=== PATIENT | male | born 1990 | race Caucasian/White ===

== ENCOUNTER 2020-12-25 18:45 | Emergency (ER) | payer OTHER, SELFPAY ==
[2020-12-25 19:00] VITALS: BP 127/66; PULSE 92; RESP 18; TEMP 37.4; O2SAT 98; BMI 25.0
[2020-12-25 19:32] VITALS: PULSE 78; O2SAT 97
[2020-12-25 19:38] LABS: COVID19 -Nasal RAPID Negative (Negative)
[2020-12-25 20:00] VITALS: BP 126/64; PULSE 88; O2SAT 97
--- NOTE | 2020-12-25 20:16 | ED_ITS ---
HPI - Fever General Chief Complaint: Fever Stated Complaint: fever, not feeling well Time Seen by Provider: 12/25/20 18:46 Source: patient Mode of arrival: Ambulatory Limitations: no limitations History of Present Illness HPI Narrative: 30-year-old male smoker with noncontributory medical history presents with his significant other and a chief complaint of a few days of fever, body aches, sore throat and difficulty swallowing. He had been seen earlier in the day and had a COVID swab at an outside facility which was negative. He denies any nasal congestion or runny nose, he denies any cough or chest pain. He has had no nausea, vomiting or diarrhea. His pain is worse on the left side of his throat than the right and certainly worsened with swallowing. He is able to keep liquids down. MD complaint: fever Onset (ago): day(s) Temperature Source: subjective Associated symptoms: chills, myalgias and sore throat Relieving factors: nothing Related Data Previous Rx's Medication Instructions Recorded amoxicillin-pot clavulanate 1 tab PO BID #20 tab 12/25/20 [Augmentin] Allergies Allergy/AdvReac Type Severity Reaction Status Date / Time No Known Drug Allergies Allergy Verified 12/25/20 19:00 Review of Systems Constitutional Constitutional: Reports body ache(s), Reports chills, Denies fatigue, Reports fever(s), Denies frequent falls, Denies lethargy and Denies weakness Eyes Eyes: Denies change in vision, Denies eye discharge, Denies irritation and Denies loss of vision ENT Ears, Nose, Mouth, and Throat: Denies change in voice, Denies dizziness, Denies neck pain, Reports sore throat and Denies throat swelling Cardiovascular Cardiovascular: Denies chest pain, Denies irregular heart rhythm, Denies lightheadedness, Denies palpitations, Denies dyspnea, Denies dyspnea on exertion and Denies orthopnea Respiratory Respiratory: Denies cough, Denies dyspnea, Denies dyspnea on exertion and Denies wheezing Gastrointestinal Gastrointestinal: Denies abdominal pain, Denies change in bowel habits, Denies diarrhea, Denies nausea and Denies vomiting Musculoskeletal Musculoskeletal: Denies neck pain and Denies numbness Integumentary/Breasts Skin/Breast: Denies pruritus, Denies erythema, Denies rash and Denies wounds Neurologic Neurologic: Denies behavioral changes, Denies confusion, Denies dizziness, Denies frequent falls, Denies loss of vision, Denies numbness and Denies weakness Psychiatric Psychiatric: Denies anxiety, Denies behavioral changes, Denies confusion, Denies depression, Denies homicidal ideation and Denies suicidal ideation Endocrine Endocrine: Denies fatigue, Denies flushing and Denies palpitations Hematologic/Lymphatic Hematologic/Lymphatic: Denies easy bruising Allergic/Immunologic Allergic/Immunologic: Denies urticaria, Denies throat swelling and Denies wheezing Patient History Social History Smoking Status: Current some day smoker Smoking Status: Current some day smoker tobacco type: vaping alcohol intake frequency: holidays/special occasions only Substance Use Type: does not use Exam Narrative Exam Narrative: GEN: AOx3 and in mild distress, obviously feeling unwell, not septic EYES: Pupils are equal, round, and reactive to light and accommodation. Extraoccular muscles are intact bilaterally. There is no subconjunctival hemorrhage or exudate. ENT: Notable pharyngeal erythema with some white exudate in the left posterior pharynx, no swelling or uvular pointing. Tender left anterior lymphadenopathy. Tympanic membranes clear bilaterally with normal cone of light CHEST: Lungs are clear to auscultation bilaterally and free of wheezes, rales, or rhonchi. Heart rate is regular rhythm, there are no murmurs, clicks, rubs, or gallops. There is no chest wall tenderness. ABD: Abdomen is soft and nontender. There is no guarding or rebound. Bowel sounds are normal in all 4 quadrants. There is no mass or organomegaly. EXT: Full painless ROM of all extremities with no loss of sensation or strength. SKIN: Warm, pink, and dry. No erythema or rash Initial Vital Signs Initial Vital Signs: Vital Signs Temperature 99.3 F 12/25/20 19:00 Pulse Rate 92 H 12/25/20 19:00 Respiratory Rate 18 12/25/20 19:00 Blood Pressure 127/66 12/25/20 19:00 Pulse Oximetry 98 12/25/20 19:00 Course Course Course Narrative: Though patient's rapid strep test is negative I am highly suspicious for a bacterial strain of pharyngitis, his exam and history are very convincing. Antibiotics written, culture obtained #66: Appropriate Testing for Patients with Pharyngitis [x] The patient has acute pharyngitis/tonsillitis. The patient was prescribed antibiotics today and a strep test or culture was performed. [SATISFIES [facility] [employer] [employer]] [] The patient has acute pharyngitis/tonsillitis and was prescribed antibiotics today. A strep test or culture was not performed because the patient meets one of the following: [M[employer] PERFORMAN[employer] EXCEPTION/EXCLUSION] [] Patient received a competing diagnosis. The patient?s competing diagnosis is [] (e.g. acute otitis media, chronic sinusitis, cellulitis, etc.) [] Patient is currently on antibiotics or has been in the last 30 days. [] Patient had a competing comorbid condition within the last 12 months. The patient?s comorbid condition is [] (e.g., tuberculosis, neutropenia, cystic fibrosis, chronic bronchitis, pulmonary edema, respiratory failure, rheumatoid lung disease) [] The patient has acute pharyngitis/tonsillitis. The patient was prescribed antibiotics today and a strep test or culture was not performed. [DOES NOT SATISFY MIPS PERFORMANCE] Orders Ordered: Discontinued Medications Amoxicillin/Clavulanate Potassium (Amoxicillin/Clav 875/125 Mg) 1 tab PO NOW ONE Stop: 12/25/20 21:36 Last Admin: 12/25/20 21:39 Dose: 1 tab Documented by: OMARI Vital Signs Vital signs: Vital Signs - 8 hr 12/25/20 19:00 Temperature 99.3 F Pulse Rate 92 H Respiratory Rate 18 Blood Pressure 127/66 Pulse Oximetry 98 MDM - Fever Lab Data Labs: Lab Results 12/25/20 Range/Units 19:21 SARS-CoV-2 (PCR) Negative (Negative) Point of Care Testing Rapid Strep A Negative Discharge Plan Departure Patient Disposition: Home Clinical Impression: Pharyngitis Qualifiers: Pharyngitis/tonsillitis etiology: unspecified etiology Qualified Code(s): J02.9 - Acute pharyngitis, unspecified Instructions: DI for Pharyngitis/Tonsillopharyngitis -- Adult Activity Restrictions/Additional Instructions: *You have been diagnosed with [acute pharyngitis. *What to do: *Please continue to take your regular medications as directed. [x] New medication prescriptions sent to your pharmacy: [ [facility]] [ ] New medication written as a paper prescription [ ] No new medications given *Please follow up with your primary care provider in 2-3 days, call for an appointment. Let them know you were seen in the Emergency Department and that we ask that you be seen in follow up. We will electronically transmit a record of today's note if your PCP is in our system *If you do not have a primary care provider please contact the [facility] Resource line at [phone]. They will ask some questions about your medical history and help get you set up with a doctor in the community. *Return to Emergency Department if you should have any new, worsening or concerning symptoms, such as [fever greater than 101 F, shaking chills, worsening pain, persistent vomiting or other bothersome symptoms] Prescriptions: New amoxicillin-pot clavulanate [Augmentin] 875-125 mg tablet 1 tab PO BID Qty: 20 RF: 0
[2020-12-25 20:30] VITALS: BP 116/75; PULSE 84; O2SAT 96
[2020-12-25 21:00] VITALS: BP 124/60; PULSE 75; O2SAT 96
[2020-12-25] MEDS: AMOXICILLIN/CLAV 875/125 MG 1 TAB PO (21:39)
[2020-12-25 21:56] VITALS: BP 133/69; PULSE 70; RESP 18; O2SAT 97
== END 2020-12-25 21:59 | disposition home or self-care (01) ==
PROVIDERS: Emergency Provider Emergency Medicine
DX: J02.9 Acute pharyngitis, unspecified (principal); Z20.822 Contact with and (suspected) exposure to COVID-19
CPT/HCPCS: 87070; 87077; 87147; 87635; 87880; 99283; C9803

== ENCOUNTER → 2021-01-28 13:32 | Outpatient (CLI) | payer OTHER, SELFPAY ==
[2021-01-28 15:56] LABS: Add Manual Diff / Slide Review NO; Basophils Absolute Auto 100 /uL (0-100); Basophils Percent Auto 0.6 % (0-2); Eosinophils Absolute Auto 0 /uL (0-450); Eosinophils Percent Auto 0.4 % (2-4); Hematocrit 46.1 % (41-53); Hemoglobin 15.8 g/dL (13.5-17.5); Lymphocytes Absolute Auto 1900 /uL (1100-4500); Mean Corpuscular HGB Conc 34.4 % (30-36); Mean Corpuscular Hemoglobin 29.6 PG (26-34); Mean Corpuscular Volume 86.2 fL (80-100); Monocytes Absolute Auto 700 /uL (0-900); Monocytes Percent Auto 8.1 % (3-14); Neutrophils Absolute Auto 6000 /uL (1500-7000); Neutrophils Percent Auto 68.9 % (50-75); Platelet Count 244 X10^3/uL (150-400); Red Blood Cell Count 5.35 X10^6/uL (4.5-5.9); Red Cell Distribution Width 13.8 % (11.6-14.8); White Blood Cell Count 8.7 X10^3/uL (4.5-11.0)
[2021-01-28 16:33] LABS: Alanine Aminotransferase 22 IU/L (<50); Albumin 4.5 g/dL (3.5-5.0); Albumin Globulin Ratio 1.6 (1.0-2.8); Alkaline Phosphatase 59 U/L (38-126); Aspartate Aminotransferase 19 IU/L (17-59); BUN Creatinine Ratio 24.7 (6-22); Bilirubin Total 0.5 mg/dL (0.2-1.3); Blood Urea Nitrogen 23 mg/dL (9-20); C-Reactive Protein Quant < 0.5 mg/dL (<1.0); Calcium 9.5 mg/dL (8.4-10.2); Carbon Dioxide 28 mmol/L (22-32); Chloride 101 mmol/L (98-107); Estimated Glomerular Filt Rate > 60.0 mL/min (>60); Globulin 2.9 g/dL (1.7-4.1); Glucose 90 mg/dL (70-100); HEMOLYSIS < 15 (0-50); Potassium 3.7 mmol/L (3.4-5.1); Sodium 137 mmol/L (137-145); Total Protein 7.4 g/dL (6.3-8.2)
[2021-01-28 16:34] LABS: Erythrocyte Sedimentation Rate 4 MM/HR (0-15)
[2021-01-30 15:43] LABS: ANA Screen, IFA Negative (.)
== END ==
PROVIDERS: Referring Provider Physician Assistant; Visit Provider Physician Assistant
DX: M25.50 Pain in unspecified joint (principal)
CPT/HCPCS: 36415; 80053; 85025; 85651; 86038; 86140

== ENCOUNTER 2021-01-28 14:00 | Emergency (ER) | payer OTHER, SELFPAY ==
[2021-01-28 14:19] VITALS: BP 114/71; PULSE 59; RESP 15; TEMP 36.6; O2SAT 98; BMI 25.1
--- NOTE | 2021-01-28 14:27 | ED.SYNCOPE ---
HPI - Syncope <BEREKET Dial - Last Filed: 01/28/21 15:22> General Chief Complaint: Syncope Stated Complaint: Getting Labs Done and Passed Out Time Seen by Provider: 01/28/21 14:10 Source: patient Mode of arrival: Ambulatory Limitations: no limitations History of Present Illness HPI narrative: The patient is a 30-year-old male current some day smoker who presents with his girlfriend for chief complaint of syncope during a lab draw at our outpatient lab today. He states he looked at his blood and passed out. He has not concerned as he has a history of vagal reaction during lab draws and states that this is not uncommon for him. Currently he states he feels fine. He is on anti-inflammatories and steroids for a tendinitis issue, which is why he was having his labs drawn today. Related Data Previous Rx's Medication Instructions Recorded amoxicillin-pot clavulanate 1 tab PO BID #20 tab 12/25/20 [Augmentin] Allergies Allergy/AdvReac Type Severity Reaction Status Date / Time No Known Drug Allergies Allergy Verified 01/28/21 14:29 Review of Systems <BEREKET Dial - Last Filed: 01/28/21 15:22> Review of Systems Narrative: GENERAL: Denies chills, fatigue, malaise, fever, sweats. HEENT: Denies sinus pain, ear pain, sore throat, difficulty swallowing, dizziness. RESPIRATORY: Denies dyspnea, cough, wheezing, hemoptysis, sputum. CARDIOVASCULAR: See HPI GASTROINTESTINAL: Denies nausea, vomiting, abdominal pain, diarrhea, constipation, melena. : Denies dysuria, frequency, incontinence, hematuria, urinary retention. MUSCULOSKELETAL: denies weakness, joint pain, or bony pain SKIN: Denies rash, skin lesions, or other NEUROLOGIC: Denies weakness, headache, numbness, change in speech, confusion, seizures, incoordination. PSYCHIATRIC: No concerning psychosocial issues. 12 point review of systems is negative except for those stated above Patient History <BEREKET Dial - Last Filed: 01/28/21 15:22> Social History Smoking Status: Current some day smoker Smoking Status: Current some day smoker tobacco type: vaping alcohol intake frequency: holidays/special occasions only Substance Use Type: does not use Exam <BEREKET Dial - Last Filed: 01/28/21 15:22> Narrative Exam Narrative: GENERAL: This is a well-nourished, well-developed patient, in no acute distress HEAD: Atraumatic. Normocephalic. No temporal or scalp tenderness. EYES: Pupils equal round and reactive. Extraocular motions intact. No scleral icterus. No injection or drainage. ENT: Nose without bleeding, purulent drainage or septal hematoma. Wearing a mask Airway patent. NECK: Trachea midline. No JVD or lymphadenopathy. Supple, nontender, no meningeal signs. CARDIOVASCULAR: Regular rate and rhythm RESPIRATORY: Clear to auscultation. Breath sounds equal bilaterally. No wheezes, rales, or rhonchi. No cough. No increased respiratory effort. No accessory muscle use GASTROINTESTINAL: Abdomen soft, non-tender, nondistended. No hepato-splenomegaly, or palpable masses. No guarding. EXTREMITIES: No clubbing, cyanosis, or edema. No joint tenderness, effusion, or edema noted. BACK: Nontender without deformity or crepitance. No flank tenderness. NEURO: AOx3. Stable gait. Clear speech. SKIN: No rash or erythema on visible skin Initial Vital Signs Initial Vital Signs: Vital Signs Temperature 97.8 F 01/28/21 14:19 Pulse Rate 59 L 01/28/21 14:19 Respiratory Rate 15 01/28/21 14:19 Blood Pressure 114/71 01/28/21 14:19 Pulse Oximetry 98 01/28/21 14:19 <Diya Rubin DO - Last Filed: 02/01/21 07:40> Initial Vital Signs Initial Vital Signs: Vital Signs Temperature 97.8 F 01/28/21 14:19 Pulse Rate 59 L 01/28/21 14:19 Respiratory Rate 15 01/28/21 14:19 Blood Pressure 114/71 01/28/21 14:19 Pulse Oximetry 98 01/28/21 14:19 Course <BEREKET Dial - Last Filed: 01/28/21 15:22> Orders Ordered: ED Orders 01/28/21 14:22 EKG-12 Lead Stat Vital Signs Vital signs: Vital Signs - 8 hr 01/28/21 14:19 01/28/21 15:10 Temperature 97.8 F Pulse Rate 59 L 67 Respiratory Rate 15 16 Blood Pressure 114/71 123/79 Pulse Oximetry 98 98 <Diya Rubin DO - Last Filed: 02/01/21 07:40> Orders Ordered: ED Orders 01/28/21 14:22 EKG-12 Lead Stat Vital Signs Vital signs: Vital Signs - 8 hr 01/28/21 14:19 01/28/21 15:10 Temperature 97.8 F Pulse Rate 59 L 67 Respiratory Rate 15 16 Blood Pressure 114/71 123/79 Pulse Oximetry 98 98 MDM - Syncope <MARISA Dial-BC - Last Filed: 01/28/21 15:22> ECG Data Attestation: I personally reviewed and interpreted this ECG as follows: Interpretation: Normal sinus rhythm. Ventricular rate 60. P.r. interval 180. QRS 100. Viewed by Dr. Rubin. [facility] Narrative Medical decision making narrative: The patient is a 30-year-old male who presents with a chief complaint of syncope after looking at his own blood during lab draw. He states that this happens frequently, ?it is not the 1st time it will be the last time.He is not very concerned about this and is requesting to leave. This is likely a vagal reaction given his lab draw, which correlates with history. He denies any chest pain shortness of breath, has been hemodynamically stable throughout his stay in the ER. He is ambulating with no acute distress. EKG has no acute findings. Discussed at length follow up with primary care provider, coming back to the emergency department for any acute concerns. Patient has no questions or concerns upon discharge states understanding of return precautions as well as follow-up care. Discharge Plan Departure Patient Disposition: Home Clinical Impression: Vagal reaction Syncope Qualifiers: Syncope type: vasovagal syncope Qualified Code(s): R55 - Syncope and collapse Instructions: DI for Syncope in Adults (Fainting) Activity Restrictions/Additional Instructions: Thank you for trusting us with your care today. As discussed, you passed out today likely due to a vagal response related to having your blood drawn. Please rest and push fluids. Please come back to the emergency department for any acute concerns. Follow-up with primary care provider in the next few days. Prescriptions: No Action amoxicillin-pot clavulanate [Augmentin] 875-125 mg tablet 1 tab PO BID Qty: 20 RF: 0 Referrals: Nettie Nevarez PA-C [Primary Care Provider] - <Diya Rubin DO - Last Filed: 02/01/21 07:40> Cosign ED Attending Randiature Attestation: I was immediately available in the department for consultation. Documentation has been reviewed. I agree with assessment and plan.
--- NOTE | 2021-01-28 15:01 | PC.NURSE ---
reports history off passing out with blood draws
[2021-01-28 15:10] VITALS: BP 123/79; PULSE 67; RESP 16; O2SAT 98
== END 2021-01-28 15:13 | disposition home or self-care (01) ==
PROVIDERS: Emergency Provider Nurse Practitioner Family; PCP Physician Assistant
DX: R55 Syncope and collapse (principal); M25.50 Pain in unspecified joint
CPT/HCPCS: 36415; 80053; 85025; 85651; 86038; 86140; 93005; 99282; 99283

== ENCOUNTER → 2021-02-01 17:49 | Outpatient (CLI) | payer OTHER, SELFPAY ==
--- NOTE | 2021-02-01 17:50 | DI.MRI.S_ITS ---
PROCEDURE: MR ANKLE RT WO CON INDICATIONS: Achilles tendinitis, right leg TECHNIQUE: Noncontrast sagittal T1 spin echo and T2 fast spin echo with fat saturation, axial proton density fast spin echo and T2 fast spin echo with fat saturation, coronal T1 spin echo and T2 fast spin echo with fat saturation through the ankle/hindfoot. COMPARISON: None. FINDINGS: Image quality: There is mild inhomogeneous fat saturation. Bones and joints: No bone marrow contusions or fractures. No hindfoot coalitions. No osteochondral injuries of the talar dome. No pathologic joint effusions. Medial structures: The posterior tibialis, flexor digitorum longus, and flexor hallucis longus tendons are intact. The posterior tibial neurovascular bundle appears normal within the tarsal tunnel, without extrinsic mass effect. The deltoid and spring ligament components appear intact. Lateral structures: The anterior talofibular, calcaneofibular, and posterior talofibular ligaments appear intact. More superiorly, the anterior and posterior tibiofibular ligaments appear intact, as is the intermalleolar ligament. The tibiofibular syndesmosis is normal in width at 2 mm or less. The peroneus longus and brevis tendons demonstrate normal location and morphology. Adjacent bony peroneal tubercle and retrotrochlear prominence are normal in size. The sinus tarsi demonstrates normal fatty signal, without edema, fibrosis, or cyst formation. The calcaneonavicular and calcaneocuboid components of the bifurcate ligament appear intact. The dorsal calcaneocuboid ligament appears intact. Anterior structures: The tibialis anterior, extensor hallucis longus, and extensor digitorum longus tendons appear intact. The dorsal talonavicular ligament appears intact. Posterior and plantar structures: There is mild tendinosis of the Achilles tendon with mild intrasubstance T2 hyperintensity suggestive of mild interstitial partial tearing. No evidence of rupture. Medial and lateral bands of the plantar fascia are of normal thickness. No abductor digiti quinti muscle atrophy to suggest Varela neuropathy. IMPRESSION: 1. Mild tendinosis of the Achilles tendon with mild interstitial partial tearing. No high-grade tear or full-thickness rupture. Dictated by: Herb Lujan M.D. on 02/04/2021 at 10:12 Approved by: Herb Lujan M.D. on 02/04/2021 at 10:18
== END ==
PROVIDERS: PCP Physician Assistant; Referring Provider Physician Assistant; Visit Provider Physician Assistant
DX: M76.61 Achilles tendinitis, right leg (principal); S86.011A Strain of right Achilles tendon, initial encounter
CPT/HCPCS: 73721

== ENCOUNTER 2022-07-29 22:49 | Emergency (ER) | payer OTHER, SELFPAY ==
[2022-07-29 22:52] VITALS: BP 163/95; PULSE 74; RESP 20; TEMP 36.3; O2SAT 100; BMI 25.1
--- NOTE | 2022-07-29 22:54 | DI.RAD.S_ITS ---
PROCEDURE: XR CHEST 1V INDICATIONS: chest pain TECHNIQUE: One view of the chest was acquired. COMPARISON: None. FINDINGS: Surgical changes and devices: None. Lungs and pleura: Lungs are clear. No pleural effusions or pneumothorax. Mediastinum: Mediastinal contours appear normal. Heart size is normal. Bones and chest wall: No suspicious bony lesions. Overlying soft tissues appear unremarkable. IMPRESSION: 1. No acute cardiopulmonary disease. Dictated by: Herb Lujan M.D. on 07/29/2022 at 23:58 Approved by: Herb Lujan M.D. on 07/29/2022 at 23:58
[2022-07-29] MEDS: NITROGLYCERIN 0.4 MG SL TAB SL ×3 (23:10→23:27)
--- NOTE | 2022-07-29 23:11 | ED_ITS ---
HPI - Chest Pain General Chief Complaint: Chest Pain Stated Complaint: chest pain Time Seen by Provider: 07/29/22 23:00 Source: patient Mode of arrival: Ambulatory Limitations: no limitations History of Present Illness HPI narrative: Otherwise healthy 32 year old gentleman presents with severe chest pain central, stabbing associated with diaphoresis and dyspnea starting at 10:00 a.m. tonight. Getting worse. States that over the last week he has been having increasing episodes of chest pain lasting up to an hour that has resolved without additional intervention. Today's chest pain is significantly worse. He has no recent fever, cough, chills. No known congenital abnormalities. No history of hypertension hyperlipidemia. Notes that his father had a myocardial infarct at the age of 41. He describes no recent viral infections, no stimulant drug use, no other episodes of chest discomfort prior to this week. No nausea, vomiting, abdominal pain, diarrhea. No headaches, cough or fevers. Related Data Previous Rx's Medication Instructions Recorded amoxicillin 875 mg-potassium 1 tab PO BID #20 tabs 12/25/20 clavulanate 125 mg tablet (Augmentin) Allergies Allergy/AdvReac Type Severity Reaction Status Date / Time No Known Drug Allergies Allergy Verified 01/28/21 14:29 Review of Systems Review of Systems Narrative: Remainder of complete review of systems is otherwise unremarkable except for vanessa t included in the HPI. Patient History Social History Smoking Status: Current some day smoker Smoking Status: Current some day smoker tobacco type: vaping alcohol intake frequency: holidays/special occasions only Substance Use Type: does not use Exam Initial Vital Signs Initial Vital Signs: Vital Signs Temperature 97.4 F L 07/29/22 22:52 Pulse Rate 74 07/29/22 22:52 Respiratory Rate 20 07/29/22 22:52 Blood Pressure 163/95 H 07/29/22 22:52 Pulse Oximetry 100 07/29/22 22:52 Oxygen Delivery Method 07/29/22 22:52 General: Healthy appearing, somewhat pale circles under his eyes with significa nt chest pain but Able to give a complete and coherent history. Well-nourished well-developed HEENT: Moist mucous membranes, normal sclera with reactive pupils, Neck: No JVD, supple Respiratory: Lungs are clear to auscultation, no wheezing no rales no rhonchi. Full and symmetrical air movement Cardiac: Regular rate and rhythm no murmurs no bruits Abdomen: Soft, nontender, good bowel tones, no flank pain Skin: Warm and dry, no rashes Neurologic: Grossly neurologically intact with no obvious asymmetries or abnormalities Extremities: No trauma, well perfused Psych: Cooperative, appropriate insight and affect Course Orders Ordered: ED Orders 07/30/22 00:23 COVID19 -Nasal RAPID/Pre-Proc Stat Discontinued Medications Aspirin (Aspirin 81 Mg Chew Tab) 324 mg PO NOW ONE Stop: 07/29/22 22:55 Last Admin: 07/29/22 23:16 Dose: 324 mg Documented By: RIAZ Aspirin (Aspirin 81 Mg Chew Tab) 324 mg PO NOW ONE Stop: 07/29/22 23:16 Last Admin: 07/29/22 23:49 Dose: Not Given Documented By: RIAZ Atorvastatin Calcium (Atorvastatin 20 Mg Tablet) 80 mg PO NOW ONE Stop: 07/29/22 23:16 Last Admin: 07/29/22 23:25 Dose: 80 mg Documented By: RIAZ Clopidogrel Bisulfate (Clopidogrel 75 Mg Tablet) 300 mg PO NOW ONE Stop: 07/29/22 23:33 Last Admin: 07/29/22 23:36 Dose: 300 mg Documented By: RIAZ Heparin Sodium (Porcine) (Heparin 5,000 Unit/Ml Vial) 5,000 unit IV NOW ONE Stop: 07/29/22 23:16 Last Admin: 07/29/22 23:25 Dose: 5,000 unit Documented By: RIAZ Metoprolol Tartrate (Metoprolol Tartrate 5 Mg/5 Ml Inj) 5 mg IV Q5M SHEYLA Stop: 07/29/22 23:26 Last Admin: 07/29/22 23:50 Dose: Not Given Documented By: Admin: 07/29/22 23:49 Dose: Not Given Documented By: Admin: 07/29/22 23:25 Dose: 5 mg Documented By: RIAZ Metoprolol Tartrate (Metoprolol Ir 25 Mg Tablet) 25 mg PO NOW ONE Stop: 07/29/22 23:30 Last Admin: 07/29/22 23:32 Dose: 25 mg Documented By: RIAZ Nitroglycerin (Nitroglycerin 0.4 Mg Sl Tab) 0.4 mg SL [id number] PRN PRN Reason: Chest Pain Last Admin: 07/29/22 23:27 Dose: 0.4 mg Documented By: Admin: 07/29/22 23:16 Dose: 0.4 mg Documented By: RIAZ Nitroglycerin (Nitroglycerin Oint 1 Inch/Gm Oint...G.) 0.5 inch TOP NOW ONE Stop: 07/29/22 23:30 Last Admin: 07/29/22 23:33 Dose: 0.5 inch Documented By: RIAZ Vital Signs Vital signs: Vital Signs - 8 hr 07/29/22 22:52 Temperature 97.4 F L Pulse Rate 74 Respiratory Rate 20 Blood Pressure 163/95 H Pulse Oximetry 100 Oxygen Delivery Method Room Air MDM - Chest Pain Lab Data Result diagrams: 07/29/22 23:10 07/29/22 23:10 Labs: Lab Results 07/29/22 07/29/22 07/29/22 Range/Units 23:10 23:10 23:10 WBC 8.7 (4.5-11.0) X10^3/uL RBC 5.00 (4.5-5.9) X10^6/uL Hgb 14.9 (13.5-17.5) g/dL Hct 43.5 (41-53) % MCV 87.0 (80-100) fL MCH 29.8 (26-34) PG MCHC 34.2 (30-36) % RDW 14.0 (11.6-14.8) % Plt Count 240 (150-400) X10^3/uL Neut % (Auto) 49.3 L (50-75) % Lymph % (Auto) 38.2 (25-40) % Montague % (Auto) 9.9 (3-14) % Eos % (Auto) 1.3 L (2-4) % Baso % (Auto) 1.3 (0-2) % Neut # (Auto) 4300 (0372-9173) /uL Lymph # (Auto) 3300 (1309-7683) /uL Montague # (Auto) 900 (0-900) /uL Eos # (Auto) 100 (0-450) /uL Baso # (Auto) 100 (0-100) /uL PT 10.8 (10.1-12.7) SECONDS INR 0.9 (0.9-1.3) APTT 27 (26-36) SECONDS Sodium 139 (137-145) mmol/L Potassium 3.3 L (3.4-5.1) mmol/L Chloride 103 (98-107) mmol/L Carbon Dioxide 26 (22-32) mmol/L BUN 18 (9-20) mg/dL Creatinine 1.03 (0.66-1.25) mg/dL Estimated GFR > 60 (>60) mL/min BUN/Creatinine Ratio 17.5 (6-22) Glucose 118 H (70-100) mg/dL Calcium 8.5 (8.4-10.2) mg/dL Magnesium 1.9 (1.6-2.3) mg/dL Total Bilirubin 0.2 (0.2-1.3) mg/dL AST 23 (17-59) IU/L ALT 35 (<50) IU/L Alkaline Phosphatase 59 (38-126) U/L Total Creatine Kinase 76 (55-170) U/L CK-MB (CK-2) TNP CK-MB (CK-2) Rel Index TNP Troponin I < 0.012 (0.01-0.034) ng/mL Total Protein 6.7 (6.3-8.2) g/dL Albumin 4.3 (3.5-5.0) g/dL Globulin 2.4 (1.7-4.1) g/dL Albumin/Globulin Ratio 1.8 (1.0-2.8) Lipase 78 (23-300) U/L SARS-CoV-2 (PCR) (Negative) 07/29/22 Range/Units 23:30 WBC (4.5-11.0) X10^3/uL RBC (4.5-5.9) X10^6/uL Hgb (13.5-17.5) g/dL Hct (41-53) % MCV (80-100) fL MCH (26-34) PG MCHC (30-36) % RDW (11.6-14.8) % Plt Count (150-400) X10^3/uL Neut % (Auto) (50-75) % Lymph % (Auto) (25-40) % Montague % (Auto) (3-14) % Eos % (Auto) (2-4) % Baso % (Auto) (0-2) % Neut # (Auto) (4479-9250) /uL Lymph # (Auto) (7939-4752) /uL Montague # (Auto) (0-900) /uL Eos # (Auto) (0-450) /uL Baso # (Auto) (0-100) /uL PT (10.1-12.7) SECONDS INR (0.9-1.3) APTT (26-36) SECONDS Sodium (137-145) mmol/L Potassium (3.4-5.1) mmol/L Chloride (98-107) mmol/L Carbon Dioxide (22-32) mmol/L BUN (9-20) mg/dL Creatinine (0.66-1.25) mg/dL Estimated GFR (>60) mL/min BUN/Creatinine Ratio (6-22) Glucose (70-100) mg/dL Calcium (8.4-10.2) mg/dL Magnesium (1.6-2.3) mg/dL Total Bilirubin (0.2-1.3) mg/dL AST (17-59) IU/L ALT (<50) IU/L Alkaline Phosphatase (38-126) U/L Total Creatine Kinase (55-170) U/L CK-MB (CK-2) CK-MB (CK-2) Rel Index Troponin I (0.01-0.034) ng/mL Total Protein (6.3-8.2) g/dL Albumin (3.5-5.0) g/dL Globulin (1.7-4.1) g/dL Albumin/Globulin Ratio (1.0-2.8) Lipase (23-300) U/L SARS-CoV-2 (PCR) Negative (Negative) ECG Data Interpretation: Sinus rhythm at a rate of 76 ST elevation V1 V2 V3 Dynamic T-wave changes leads II III AVF. Question ST elevation in aVL MDM Narrative Medical decision making narrative: 32-year-old gentleman with no significant history or dramatic risk factors presents with acute onset chest pain 10:00 a.m. see evening with EKG showing significant abnormalities consistent with acute ischemia. Dr Florian, interventionalist net application support specialist EKG to him for reveiw 11:10. . 11:15 recommended transfer to [place] [id number], aspirin, IV metoprolol followed by p.o. 25 mg of metoprolol, 5000 units of heparin and prasugrel. All these medications are given with the exception of prasugrel - not on formulary at this hospital. Will give 300mg plavix instead 1122 care is discussed with emergency room physician, Dr. Roth at [facility] accepts transfer. I am told forms completed 1125 patient is re-evaluated. Significant improvement in chest pain after the initial nitroglycerin. Tolerated IV metoprolol p.o. metoprolol has been given. Nitro paste is placed, describes his pain at the time of transfer at 0.5/10 1130 medic arrival. Report given Critical Care Time Critical Care Time Critical Care Time: Yes Total Critical Care Time: 33 Attestation: Critical care time is separate from other billable procedures. There is a high probability of a significant, sudden or life-threatening deterioration that requires my full and direct attention, intervention and personal management. This critical care time includes consultation with family and other consulting doctors, review of records, and interpretation of data from labs, EKGs and imaging as well as managements of acute myocardial infarction Discharge Plan Departure Patient Disposition: er [facility] Clinical Impression: ST elevation KS (STEMI) Prescriptions: No Action amoxicillin-pot clavulanate [Augmentin] 875-125 mg tablet 1 tab PO BID Qty: 20 0RF Referrals: Nettie Nevarez PA-C [Primary Care Provider] -
[2022-07-29 23:16] VITALS: BP 126/67; PULSE 66
[2022-07-29] MEDS: ASPIRIN 81 MG CHEW TAB 324 MG PO (23:16)
[2022-07-29] MEDS: HEPARIN 5,000 UNIT/ML VIAL 5000 UNIT IV (23:25)
[2022-07-29] MEDS: METOPROLOL TARTRATE 5 MG/5 ML INJ IV (23:25)
[2022-07-29] MEDS: ATORVASTATIN 20 MG TABLET 80 MG PO (23:25)
[2022-07-29 23:27] VITALS: BP 124/73; PULSE 68
[2022-07-29 23:29] LABS: Add Manual Diff / Slide Review NO; Basophils Absolute Auto 100 /uL (0-100); Basophils Percent Auto 1.3 % (0-2); Eosinophils Absolute Auto 100 /uL (0-450); Eosinophils Percent Auto 1.3 % (2-4); Hematocrit 43.5 % (41-53); Hemoglobin 14.9 g/dL (13.5-17.5); Lymphocytes Absolute Auto 3300 /uL (1100-4500); Lymphocytes Percent Auto 38.2 % (25-40); Mean Corpuscular HGB Conc 34.2 % (30-36); Mean Corpuscular Hemoglobin 29.8 PG (26-34); Monocytes Absolute Auto 900 /uL (0-900); Monocytes Percent Auto 9.9 % (3-14); Neutrophils Absolute Auto 4300 /uL (1500-7000); Neutrophils Percent Auto 49.3 % (50-75); Platelet Count 240 X10^3/uL (150-400); White Blood Cell Count 8.7 X10^3/uL (4.5-11.0)
[2022-07-29] MEDS: METOPROLOL IR 25 MG TABLET PO (23:32)
[2022-07-29] MEDS: NITROGLYCERIN OINT 1 INCH/GM OINT...G. 0.5 INCH TOP (23:33)
[2022-07-29 23:34] LABS: INR 0.9 (0.9-1.3); Prothrombin Time 10.8 SECONDS (10.1-12.7)
[2022-07-29 23:36] LABS: PTT Partial Thromboplastin Tim 27 SECONDS (26-36)
[2022-07-29] MEDS: CLOPIDOGREL 75 MG TABLET 300 MG PO (23:36)
[2022-07-29 23:52] LABS: Alanine Aminotransferase 35 IU/L (<50); Albumin 4.3 g/dL (3.5-5.0); Albumin Globulin Ratio 1.8 (1.0-2.8); Alkaline Phosphatase 59 U/L (38-126); Aspartate Aminotransferase 23 IU/L (17-59); BUN Creatinine Ratio 17.5 (6-22); Bilirubin Total 0.2 mg/dL (0.2-1.3); Blood Urea Nitrogen 18 mg/dL (9-20); Calcium 8.5 mg/dL (8.4-10.2); Carbon Dioxide 26 mmol/L (22-32); Chloride 103 mmol/L (98-107); Creatine Kinase 76 U/L (55-170); Estimated Glomerular Filt Rate > 60 mL/min (>60); Globulin 2.4 g/dL (1.7-4.1); Glucose 118 mg/dL (70-100); HEMOLYSIS < 15 (0-50); Lipase 78 U/L (23-300); Magnesium 1.9 mg/dL (1.6-2.3); Potassium 3.3 mmol/L (3.4-5.1); Sodium 139 mmol/L (137-145); Total Protein 6.7 g/dL (6.3-8.2)
[2022-07-30 00:03] LABS: Troponin I < 0.012 ng/mL (0.01-0.034)
[2022-07-30 01:12] LABS: COVID19 -Nasal RAPID Negative (Negative)
== END 2022-07-29 23:38 | disposition short-term general hospital (02) ==
PROVIDERS: Emergency Provider Emergency Medicine; PCP Physician Assistant
DX: I21.3 ST elevation (STEMI) myocardial infarction of unspecified site (principal); Z20.822 Contact with and (suspected) exposure to COVID-19
CPT/HCPCS: 36415; 71045; 80053; 82550; 82553; 83690; 83735; 84484; 85025; 85610; 85730; 87635; 93005; 93010; 96374; 99284; 99291; C9803; J1644

== ENCOUNTER → 2022-08-13 14:33 | Outpatient (CLI) | payer OTHER, SELFPAY ==
[2022-08-13 16:47] LABS: BUN Creatinine Ratio 19.1 (6-22); Blood Urea Nitrogen 18 mg/dL (9-20); Calcium 9.1 mg/dL (8.4-10.2); Carbon Dioxide 28 mmol/L (22-32); Chloride 98 mmol/L (98-107); Estimated Glomerular Filt Rate > 60 mL/min (>60); Glucose 85 mg/dL (70-100); HEMOLYSIS < 15 (0-50); Potassium 4.8 mmol/L (3.4-5.1); Sodium 137 mmol/L (137-145)
== END ==
PROVIDERS: PCP Family Medicine; Referring Provider Family Medicine; Visit Provider Family Medicine
DX: E87.6 Hypokalemia (principal)
CPT/HCPCS: 36415; 80048

== ENCOUNTER → 2023-06-03 13:32 | Outpatient (CLI) | payer SELFPAY ==
[2023-06-03 15:07] LABS: Add Manual Diff / Slide Review NO; Basophils Absolute Auto 100 /uL (0-100); Eosinophils Absolute Auto 0 /uL (0-450); Eosinophils Percent Auto 0.5 % (2-4); Hematocrit 45.4 % (41-53); Hemoglobin 15.4 g/dL (13.5-17.5); Lymphocytes Absolute Auto 1800 /uL (1100-4500); Lymphocytes Percent Auto 32.9 % (25-40); Mean Corpuscular HGB Conc 33.8 % (30-36); Mean Corpuscular Hemoglobin 28.5 PG (26-34); Mean Corpuscular Volume 84.3 fL (80-100); Monocytes Absolute Auto 300 /uL (0-900); Monocytes Percent Auto 6.3 % (3-14); Neutrophils Absolute Auto 3200 /uL (1500-7000); Neutrophils Percent Auto 59.3 % (50-75); Platelet Count 213 X10^3/uL (150-400); Red Blood Cell Count 5.38 X10^6/uL (4.5-5.9); Red Cell Distribution Width 13.8 % (11.6-14.8); White Blood Cell Count 5.4 X10^3/uL (4.5-11.0)
[2023-06-03 15:32] LABS: BUN Creatinine Ratio 14.6 (6-22); Blood Urea Nitrogen 14 mg/dL (9-20); Calcium 9.1 mg/dL (8.4-10.2); Carbon Dioxide 27 mmol/L (22-32); Chloride 102 mmol/L (98-107); Cholesterol 212 mg/dL (140-199); Estimated Glomerular Filt Rate > 60 mL/min (>60); Glucose 96 mg/dL (70-100); HDL Cholesterol 36 mg/dL (40-60); HEMOLYSIS < 15 (0-50); LDL Cholesterol Calculated 162 mg/dL (<100); Potassium 4.4 mmol/L (3.4-5.1); Sodium 138 mmol/L (137-145); Triglycerides 69 mg/dL (35-150)
== END ==
PROVIDERS: PCP Family Medicine; Referring Provider Internal Medicine Cardiovascular Disease; Visit Provider Internal Medicine Cardiovascular Disease
DX: I25.10 Atherosclerotic heart disease of native coronary artery without angina pectoris (principal); E78.01 Familial hypercholesterolemia
CPT/HCPCS: 36415; 80048; 80061; 85025